=== PATIENT | female | born 1995 | race Two or more races ===

== ENCOUNTER 2024-12-08 19:32 | Emergency (ER) | payer MEDICAID, SELFPAY ==
[2024-12-08 19:33] VITALS: BMI 36.6
[2024-12-08 20:51] VITALS: BP 139/69; PULSE 94; RESP 17; TEMP 37.6; O2SAT 97
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
[2024-12-08] MEDS: CYCLObenzaPRINE 5 MG TABLET PO (21:27)
[2024-12-08] MEDS: NAPROXEN 250 MG TABLET 500 MG PO (21:27)
== END 2024-12-08 21:35 | disposition home or self-care (01) ==
LOC: SERX 21:23
PROVIDERS: Emergency Provider Emergency Medicine; PCP Family Medicine
DX: S30.0XXA Contusion of lower back and pelvis, initial encounter (principal); V89.2XXA Person injured in unspecified motor-vehicle accident, traffic, initial encounter; Y92.410 Unspecified street and highway as the place of occurrence of the external cause
CPT/HCPCS: 99282; A9270